=== PATIENT | female | born 1980 | race Caucasian/White ===

== ENCOUNTER 2016-09-13 18:40 | Emergency (ER) | payer SELFPAY ==
[~2016-09-13] VITALS: Ht 154.9 cm; Wt 90.7 kg
[2016-09-13 18:46] VITALS: BP 156/85; PULSE 111; RESP 16; TEMP 98.1; O2SAT 96
--- NOTE | 2016-09-13 18:49 | NUR ---
Patient triaged and placed in waiting room. VSS and patient appears in no acute distress at this time. Accompanied by self, awaiting available bed, and MD notified of need for MSE.
--- NOTE | 2016-09-13 19:03 | NUR ---
AMBULATED TO BED 8
--- NOTE | 2016-09-13 19:15 | NUR ---
pt AAOx4 c/o abcess to right side lobo-rectal abcess since sunday, increasing in pain. Pt reports difficulty walking. pain 05/15.
--- NOTE | 2016-09-13 19:25 | NUR ---
ER YOHAN Manzo at bedside examining patient.
[2016-09-13] MEDS ORDERED: SULFAMETHOXAZOLE/TRIMETHOPR DS 1 TABLET PO ONE (19:30)
[2016-09-13] MEDS ORDERED: LIDOCAINE/EPI 2% 1:100000 20 ML VIAL INJ ONE (19:30)
[2016-09-13] MEDS ORDERED: fentaNYL CITRATE/PF 100 MCG/2 ML AMP IVP ONE (19:30)
[2016-09-13] MEDS ORDERED: LIDOCAINE 4% TOPICAL 50 ML BOTTLE MM ONE (19:30)
[2016-09-13] MEDS ORDERED: DIPHENHYDRAMINE INJ 50 MG/ML VIAL IVP ONE (19:30)
[2016-09-13] MEDS ORDERED: CEFAZOLIN 1 GM IVPB PREMIX 50 ML IV ONE (19:30)
[2016-09-13] MEDS ORDERED: SODIUM BICARBONATE 8.4% VIAL 50 MEQ/50 ML VIAL INJ ONE (19:30)
--- NOTE | 2016-09-13 19:55 | NUR ---
Patient given written and verbal discharge instructions and verbalizes understanding. ER MD discussed with patient the results and treatment provided. Patient in stable condition. ID arm band removed. Rx of TRAMADOL, KEFLEX, BACTRIM, MORTIN given. Patient educated on pain management and to follow up with PMD. Pain Scale 0/10. Opportunity for questions provided and answered.
[2016-09-13 19:58] VITALS: BP 143/82; PULSE 98; RESP 16; TEMP 98.4; O2SAT 99
== END 2016-09-13 19:55 | disposition home or self-care (01) ==
LOC: SED 18:40
DX: K61.1 Rectal abscess (principal)
CPT/HCPCS: 46040; 96365; 96375; 99284; J0690; J1200; J3010

== ENCOUNTER 2016-09-15 18:02 | Emergency (ER) | payer SELFPAY ==
[~2016-09-15] VITALS: Ht 154.9 cm; Wt 90.7 kg
[2016-09-15 18:02] VITALS: BP 159/92; PULSE 95; RESP 18; TEMP 98; O2SAT 97
--- NOTE | 2016-09-15 18:02 | NUR ---
BROUGHT BACK TO BED #1 AND TRIAGED. REPORT GIVEN TO NAM
--- NOTE | 2016-09-15 18:03 | NUR ---
Pt here for wound check, had abscess packing done here in ED on Sunday09/13/16. Pt denied pain at moment. Pt waiting for MD stallings.
--- NOTE | 2016-09-15 18:04 | NUR ---
Dr. Rodrigez at bedside to assess pt.
--- NOTE | 2016-09-15 20:20 | NUR ---
Patient given written and verbal discharge instructions and verbalizes understanding. ER MD discussed with patient the results and treatment provided. Patient in stable condition. ID arm band removed. Opportunity for questions provided and answered.
[2016-09-15 23:37] VITALS: BP 142/89; PULSE 95; RESP 18; TEMP 98; O2SAT 97
== END 2016-09-15 20:20 | disposition home or self-care (01) ==
LOC: SED 18:02
DX: Z48.01 Encounter for change or removal of surgical wound dressing (principal); K61.1 Rectal abscess
CPT/HCPCS: 99283

== ENCOUNTER 2016-09-17 14:56 | Emergency (ER) | payer SELFPAY ==
[~2016-09-17] VITALS: Ht 154.9 cm; Wt 90.7 kg
[2016-09-17 14:57] VITALS: BP 134/76; PULSE 88; RESP 17; TEMP 97.6; O2SAT 98
--- NOTE | 2016-09-17 14:57 | NUR ---
Patient triaged and placed in waiting room. VSS and patient appears in no acute distress at this time. Accompanied by self, awaiting available bed, and MD notified of need for MSE.
--- NOTE | 2016-09-17 15:10 | NUR ---
Pt. was at [facility] this Sunday, as per pt. she was seen here by Anais Plunkett MANAGER ANALYSIS for perianal abscess drained & packed, Here today for wound drainage and packing, mild perianal pain 12/13, denies SOB, lungs clear, no bleesing at site, wound healing with approximate wound edges, no fever, clear speech
--- NOTE | 2016-09-17 15:15 | NUR ---
Anais ALMANZAR at bedside examining hte pt. Addendum: 09/17/16 at 1637 by NAY examining the pt.
--- NOTE | 2016-09-17 15:30 | NUR ---
Anais TENSIONING MACHINE OPERATOR at bedside with EMT Luís for wound repack
[2016-09-17 16:15] VITALS: BP 128/76; PULSE 79; RESP 17; TEMP 98.3; O2SAT 98
--- NOTE | 2016-09-17 16:15 | NUR ---
Patient given written and verbal discharge instructions and verbalizes understanding. ER MD Manzo DOOR BUILDER discussed with patient the results and treatment provided. Patient in stable condition. ID arm band removed. Rx docusate given. Patient educated on pain management and to follow up with PMD. Pain Scale 0/10 Opportunity for questions provided and answered.
== END 2016-09-17 16:15 | disposition home or self-care (01) ==
LOC: SED 14:56
DX: Z48.01 Encounter for change or removal of surgical wound dressing (principal); K61.1 Rectal abscess
CPT/HCPCS: 99282